=== PATIENT | female | born 1960 | race Caucasian/White ===

== ENCOUNTER 2024-06-16 13:50 | Emergency (ER) | payer OTHER ==
[~2024-06-16] VITALS: Ht 154.9 cm; Wt 88.6 kg
[2024-06-16 13:59] VITALS: TEMP 97.6
[2024-06-16] MEDS ORDERED: NS 500 ML IV ONE (14:30)
[2024-06-16] MEDS ORDERED: NORCO 325 MG-51 TAB PO (15:28)
[2024-06-16 15:50] VITALS: BP 138/76; PULSE 88
== END 2024-06-16 15:50 | disposition home or self-care (01) ==
LOC: COL.ER 13:50
DX: S43.004A Unspecified dislocation of right shoulder joint, initial encounter (principal); Z87.891 Personal history of nicotine dependence; W18.11XA Fall from or off toilet without subsequent striking against object, initial encounter
CPT/HCPCS: J2704; J7040